=== PATIENT | male | born 1960 | race Caucasian/White ===

== ENCOUNTER → 2018-04-04 | Day surgery (SDC) | payer BC ==
[~2018-04-04] MED LIST: HYDROmorphone 2 MG/ML VIAL IV PRN; IV RINGERS,LACTATED 1000ML 1,000 ML IV SCH; LIDOCAINE 1% PF 2 ML VIAL. ID PRN; MORPHINE SULFATE 2 MG/ML VIAL. IV PRN; ONDANSETRON PF 4 MG/2 ML VIAL. IV PRN; PROCHLORPERAZINE 10 MG/2 ML VIAL. IV PRN; PROPOFOL 40 ML IV ONE; fentaNYL PF VIAL 100 MCG/2 ML VIAL IV PRN
[2018-04-04 08:25] VITALS: BP 105/61
--- NOTE | 2018-04-07 18:07 | PATHOLOGY ---
[facility] Accession Number: [id number] . 01 Material submitted: . TRANSVERSE COLON POLYP . 01 Clinical history: . Screening . 02 Diagnosis: Colon biopsy, transverse colon polyp: - Hyperplastic polyp. . ([facility]; 04/07/18) M/04/07/2018 . 02 Comment: There are no adenomatous changes or evidence of malignancy. . ([facility]:mm; 04/07/18) . 02 Electronically signed: . Houston Garcia MD, Pathologist NPI- [id number] . 01 Gross description: . Received in formalin labeled "Zion Gibbs, transverse colon polyp," are 2 segments of flores soft tissue measuring 0.9 x 0.3 x 0.3 cm in aggregate dimensions and ranging from 0.4 to 0.5 cm in maximum dimension. The specimen is submitted entirely in cassette A1. ([facility]; 04/04/2018) TOB/TOB . 02 Pathologist provided ICD-10: K63.5 . 02 CPT . 010409 Specimen Comment: A courtesy copy of this report has been sent to Specimen Comment: [phone], . Specimen Comment: Report sent to / DR SANDS Specimen Comment: A duplicate report has been generated due to demographic updates. Performed at: 01 [facility] [address], [place] [id number] MD Willis Quintero MD Phone: [phone] Performed at: 02 [facility] [address] [place], [place] [id number] MD Houston Garcia MD Phone: [phone]
== END | disposition home or self-care (01) ==
LOC: ENDOS 06:23
PROVIDERS: ATTEND Internal Medicine Gastroenterology
DX: Z12.11 Encounter for screening for malignant neoplasm of colon (principal); K63.5 Polyp of colon; K57.30 Diverticulosis of large intestine without perforation or abscess without bleeding; K64.0 First degree hemorrhoids; Z86.010 Personal history of colon polyps; K21.9 Gastro-esophageal reflux disease without esophagitis; Z98.890 Other specified postprocedural states; M19.90 Unspecified osteoarthritis, unspecified site; Z82.49 Family history of ischemic heart disease and other diseases of the circulatory system; Z72.89 Other problems related to lifestyle
CPT/HCPCS: 45380; 88305; J2704

== ENCOUNTER → 2019-01-21 | Outpatient (CLI) | payer OTHER, BC ==
[2018-04-04 08:25] VITALS: BP 105/61
--- NOTE | 2019-01-21 13:56 | KCIC ---
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 Technique: 2 views of the orbits. Comparison: None. Findings: No radiopaque foreign bodies. Normal alignment. Paranasal sinuses are patent. Impression: 1. No radiopaque foreign bodies. Electronically signed by: Ray Contreras DO (01/21/2019 1:54 PM) [facility]
--- NOTE | 2019-01-21 16:40 | KCIC ---
MR of the right shoulder HISTORY: Right shoulder pain after a fall December 31. TECHNIQUE: Routine multiplanar sequences are obtained. FINDINGS: The acromioclavicular joint is mildly degenerative with small undersurface osteophytes. Full-thickness rotator cuff tear of the anterior supraspinatus tendon measures about 15 to 20 mm AP diameter. No significant retraction. Partial thickness articular surface tearing through the more posterior rotator cuff. Trace subdeltoid bursal effusion. No significant glenohumeral joint effusion. No acute articular cartilage defect. Mild signal within the superior labrum raising the question of a small degenerative tear. Biceps tendon appears intact. No acute fracture or aggressive bone destruction. No acute soft tissue abnormality. IMPRESSION: 1. Small full-thickness rotator cuff tear of the anterior supraspinatus tendon. Partial articular surface tearing of the more posterior rotator cuff. 2. Probable small degenerative superior labral tear. Electronically signed by: Roscoe Diaz MD (01/21/2019 4:37 PM) [facility]
== END | disposition home or self-care (01) ==
LOC: KCIC MRI 13:29
PROVIDERS: ATTEND Registered Nurse
DX: M75.101 Unspecified rotator cuff tear or rupture of right shoulder, not specified as traumatic (principal); M25.711 Osteophyte, right shoulder
CPT/HCPCS: 70030; 73221